=== PATIENT | male | born 1995 ===

== ENCOUNTER → 2025-01-02 | Outpatient (REF) | payer OTHER ==
[2025-01-02 10:57] LABS: SEMEN APPEARANCE OPAQUE (OPAQUE); SEMEN VISCOSITY LIQUID (LIQUID); SEMEN VOLUME 3.4 ml (2.0-5.0); SPERM CONCENTRATION 86.3 M/ml (>=15.0); WBC CONCENTRATION <=1 M/ml (<=1 M/ml)
[2025-01-02 10:58] LABS: TOTAL PROGRESSIVE SPERM 73.8 M/Ejac.
== END ==
LOC: M LAB REF 10:53
DX: Z31.41 Encounter for fertility testing (principal); Z31.440 Encounter of male for testing for genetic disease carrier status for procreative management